=== PATIENT | male | born 1955 | race Caucasian/White ===

== ENCOUNTER 2017-03-20 07:05 | Emergency (ER) | payer OTHER ==
[~2017-03-20] VITALS: Ht 180.3 cm; Wt 95.3 kg
--- NOTE | ~2017-03-20 | EXE ---
[facility] [place] [address] STRESS ECHOCARDIOGRAM Name: MAYA OLMOS Room #: REG [facility] [id number] Admission: 03/20/17 Attend Phys: Discharge: Date of : 51 Date of Service: 03/20/17 1402 Report #: [id number] THIS REPORT FOR: //name// APPROVED REPORT Exam: Stress Echocardiogram Indication: Chest pain Patient Location: ER Stress Nurse: Nancy Jo RN Room #: 8 Supervising Physician: Yulia Becker M.D. Status: routine HR: 88 bpm Medical History Medical History: CAD s/p stent, HTN, Hyperlipidemia Cardiac Risk Factors: Smoking, HTN, Hyperlipidemia Previous Cardiac Procedures: PCI Exercise History: Indeterminate Procedure The patient underwent an Exercise Stress Test using the Taye Protocol. Blood pressure, heart rate, and EKG were monitored. An Echocardiogram was performed by hearing aid technician in four stages in quad fashion. At peak stress, four selected images were obtained and placed side by side with resting images for comparison. Testing Details Test: Exercise stress testing was performed using a Taye protocol. HR Resting HR: 88 bpm Max Heart Rate (APMHR): 157 bpm Max HR Achieved: 157 bpm Target HR (85% APMHR): 133 bpm % of APMHR: 100 Recovery HR: 100 bpm HR response to stress: Normal HR response to stress BP Resting BP: 162/96 mmHg Max BP: 208/96 mmHg Recovery BP: 170/80 mmHg ECG Resting ECG: Sinus Rhythm [facility] [email or web address] [address] STRESS ECHOCARDIOGRAM Name: MAYA OLMOS Room #: REG [facility]#: [id number] Admission: 03/20/17 Attend Phys: Discharge: Date of : 51 Date of Service: 03/20/17 1402 Report #: [id number] Stress ECG: Sinus Rhythm Recovery ECG: Sinus Rhythm Clinical Reason for Termination: Maximal effort Stress Symptoms: Dyspnea Exercise duration: 5 min Exercise capacity: 7 METs Overall Exercise Capacity for Age: Poor Stress ECG Conclusion 1. SUBJECTIVELY NEGATIVE FOR ISCHEMIA 2. ELECTROCARDIOGRAPHICALLY NEGATIVE FOR ISCHEMIA 3. MILDLY HYPERTENSIVE BP RESPONSE 4. DECREASED FUNCTIONAL CAPACITY Pre-Stress Echo The resting Echocardiogram showed normal left ventricular contractility with an estimated Ejection Fraction of about >55%. Post-Stress Echo The stress Echocardiogram showed normal left ventricular contractility with an estimated Ejection Fraction of about 60-65%. Clinical Normal augmentation of myocardial wall segments using a 17 segment model. Conclusion Clinical Response: Non-ischemic Exercise Capacity: Below Average Stress Echo Images: Non-ischemic 1. LOW RISK STUDY Other Information Study Quality: Good <Conclusion> 1. LOW RISK STUDY <ELECTRONICALLY SIGNED> By: Marcelino Barton MD 03/20/17 1402 140 1402 Marcelino Barton MD /MARILEE
--- NOTE | ~2017-03-20 | EKG ---
[address] [place] [address] ELECTROCARDIOGRAM REPORT Name: MAYA OLMOS Room #: [facility] M.R.#: [id number] Admission: Attend Phys: Discharge: Date of : 51 Report #: [id number] THIS REPORT FOR: //name// [facility] ED Test Date: 2017-03-20 Test Time: 07:16:08 Pat Name: MAYA OLMOS Department: Room: Gender: M Launch Engineer: [id number] : 1955 Requested By: Carlos Weaver Order Number: [id number] MD: Zack Almaguer Measurements Intervals [place] Rate: 85 P: 65 TX: 130 QRS: 58 QRSD: 99 T: 52 QT: 365 QTc: 434 Interpretive Statements Sinus rhythm Normal tracing Compared to ECG 12/17/2012 07:14:08 No significant changes Electronically Signed On 03-20-2017 8:02:07 CDT by Zack Almaguer [email or web address] <ELECTRONICALLY SIGNED> By: Zack Almaguer MD, [facility] 03/20/17 0802 0716 0716 Zack Almaguer MD, FAC /EPI
[~2017-03-20 07:05] MED LIST: ADVAIR 250-501 EACH INH; ASPIRIN EC325 M1 PO; CARVEDILOL6.25 MG; COZAAR 50 MG TA50 M1 PO; EFFIENT10 MG PO; HYZAAR 100-12.1 EACH PO; LIPITOR40 MG PO; LOVASTAT40 PO; PROAIR HFA8.5 GM INH; TOPROL XL25 MG PO
[2017-03-20] MEDS ORDERED: COZAAR 50 MG TA50 MG PO (07:28)
[2017-03-20 07:30] LABS: ABSOLUTE NEUTROPHILS 5.7 thou/uL (1.4-8.2); EOSINOPHILS 2.2 % (0.0-3.0); HEMATOCRIT 47.1 % (42.0-52.0); HEMOGLOBIN 16.3 gm/dL (14.0-18.0); LYMPHOCYTES 15.3 % (24.0-44.0); MCH 31.1 pg (26.0-34.0); MCHC 34.7 g/dL (28.0-37.0); MCV 89.6 fL (80.0-100.0); MONOCYTES 9.2 % (1.0-8.0); PLATELET COUNT 262 thou/uL (150-400); POLYS 72.3 % (36.0-66.0); RBC 5.25 mil/uL (4.50-6.00); RDW 13.4 % (10.5-14.5); WBC 7.9 thou/uL (4.0-11.0)
[2017-03-20] MEDS ORDERED: BREO ELLIPTA 11 EACH IH (07:30)
[2017-03-20 07:37] LABS: ANION GAP 9 mmol/L (7-16); BUN 13 mg/dL (7-18); CALCIUM 8.9 mg/dL (8.5-10.1); CHLORIDE 103 mmol/L (98-107); CO2 26 mmol/L (21-32); CREATININE 1.1 mg/dL (0.7-1.3); GLUCOSE 122 mg/dL (74-106); POTASSIUM 4.2 mmol/L (3.5-5.1); SODIUM 138 mmol/L (136-145)
[2017-03-20 07:39] LABS: MANUAL DIFF NO
[2017-03-20 07:50] LABS: NT-PRO BRAIN NAT PEPTIDE 64 pg/mL (<300); TROPONIN-I < 0.04 ng/mL (<0.04-0.07)
== END 2017-03-20 14:08 | disposition home or self-care (01) ==
LOC: ER 07:05
PROVIDERS: Emergency Medicine
DX: R07.89 Other chest pain (principal); I10 Essential (primary) hypertension; E78.5 Hyperlipidemia, unspecified; E66.9 Obesity, unspecified; F17.210 Nicotine dependence, cigarettes, uncomplicated; F10.99 Alcohol use, unspecified with unspecified alcohol-induced disorder; Z79.82 Long term (current) use of aspirin

== ENCOUNTER → 2019-02-19 | Outpatient (CLI) | payer OTHER ==
[~2019-02-19] MED LIST changes: +BREO ELLIPTA 11 EACH IH; +COZAAR 50 MG TA50 MG PO
== END ==
LOC: RAD 10:57
DX: J44.9 Chronic obstructive pulmonary disease, unspecified (principal)

== ENCOUNTER → 2020-04-18 | Outpatient (CLI) | payer OTHER | LOC: RAD 12:44 | PROVIDERS: ATTEND Family Medicine | DX: J44.9 Chronic obstructive pulmonary disease, unspecified (principal) ==